=== PATIENT | male | born 1990 | race Caucasian/White ===

== ENCOUNTER 2024-04-10 22:55 | Emergency (ER) | payer BC, SELFPAY ==
[2024-04-10 23:04] VITALS: BP 165/89
[2024-04-10 23:07] VITALS: BP 065/89
[2024-04-10 23:34] VITALS: BMI 30.6
[2024-04-10 23:38] VITALS: BP 146/82
[2024-04-10] MEDS: NSS 1000 IV (23:51)
[2024-04-10 23:59] LABS: Urine Albumin Negative (Neg - Trace); Urine Bilirubin Negative (Negative); Urine Character Clear (Clear); Urine Color Yellow; Urine Glucose Negative (Negative); Urine Ketone Negative (Negative); Urine Leukocyte Negative (Negative); Urine Nitrite Negative (Negative); Urine Occult Blood Negative (Negative); Urine Urobilinogen Negative (Neg - 1+)
[2024-04-11] VITALS: BP 134/66
[2024-04-11 00:02] LABS: % Basophils 0.4 % (0-2); % Eosinophils 0.3 % (0-6); % Immature Granulocytes 0.4 % (0-0.5); % Lymphocytes 7.5 % (20.5-51.1); % Monocytes 5.2 % (1.7-9.3); % Neutrophils 86.2 % (42.2-75.2); Absolute Lymphocytes 0.8 10^3/uL (1.2-3.4); Absolute Monocytes 0.6 10^3/uL (0.1-0.6); Absolute Neutrophils 9.6 10^3/uL (1.4-6.5); Hematocrit 36.4 % (39.0-52.0); Hemoglobin 13.3 g/dL (13.0-18.0); Mean Corp Hgb Conc. 36.5 g/dL (33.0-37.0); Mean Corpuscular Hgb 31.2 pg (27.0-31.0); Mean Corpuscular Volume 85.4 fL (80.0-94.0); Mean Platelet Volume 11.1 fL (7.4-10.4); Nucleated Red Blood Cells % 0 % (-); Platelet Count 165 10^3/uL (130-400); Red Blood Cell Count 4.26 10^6/uL (4.70-6.10); Red Cell Dist. Width 12.2 % (11.5-14.5); White Blood Cell Count 11.2 10^3/uL (4.8-10.8)
[2024-04-11 00:14] LABS: ALT (SGPT) 24 U/L (0-50); AST (SGOT) 28 U/L (17-59); Albumin 4.5 g/dl (3.5-5.0); Alkaline Phosphatase 50 U/L (38-126); Blood Urea Nitrogen 24 mg/dl (9-20); Calcium 9.5 mg/dl (8.4-10.2); Carbon Dioxide 26 mmol/L (22-30); Chloride 102 mmol/L (98-107); Estimated Creatinine Clearance > 125 ml/min; Glucose 124 mg/dl (70-99); Potassium 3.8 mmol/L (3.5-5.1); Sodium 138 mmol/L (135-145); Total Bilirubin 0.5 mg/dl (0.2-1.3); Total Protein 6.8 g/dl (6.3-8.2); eGFR > 60.00
--- NOTE | 2024-04-11 02:17 | ED.GENMED ---
History of Present Illness
General
Chief Complaint: Abdominal Pain
Source: patient
Exam Limitations: none
Time Seen by Provider: 04/10/24 23:12
History of Present Illness
History of Present Illness:
34-year-old healthy male who presents for evaluation of lower pelvic/groin pain. States this started about 2 hours prior to arrival. Eunice a discomfort that he thought maybe he strained himself. He then noted some chills. Denies dysuria. No
hematuria. No diarrhea. No melena. No real abdominal pain. No nausea or vomit. The patient denies any penile discharge or concern for sexually transmitted disease. No testicular pain
Past History
Past History
ED Past Medical History: None
ED Past Surgical History: Orthopedic
Phy Exam
Physical Exam
Physical Exam:
CONSTITUTIONAL Patient alert and oriented to person, place and time. Well-appearing. Vital signs reviewed.
HEAD atraumatic, normocephalic.
EYES eyelids normal to inspection, Pupils equally round and reactive to light, Extraocular muscles intact, Conjunctiva normal, Sclera normal.
NECK normal range of motion, Trachea midline, no jugular venous distention.
RESPIRATORY CHEST No respiratory distress noted, Chest expansion equal, Bilateral breath sounds clear.
CARDIOVASCULAR regular rate and rhythm, Heart sounds normal.
ABDOMEN abdomen nontender, Bowel sounds normal. No distention. Patient does have some noted tenderness in the groin bilaterally but I do suspect small groin lymph nodes. Lower extremities otherwise normal. I do not see any local infection.
circumcised, penis normal, scrotum normal, testicles nontender.
BACK normal inspection, no obvious deformities
UPPER EXTREMITY range of motion normal, Motor strength normal, no cyanosis, no edema.
LOWER EXTREMITY range of motion normal, Motor strength normal, no cyanosis, no edema.
NEURO Speech normal, No focal motor deficits, Terry coma scale 15, Memory normal, Cranial Nerves intact to screening exam.
SKIN skin warm, dry, and normal in color.
PSYCHIATRIC patient oriented to person place and time, Normal affect.
Course
Orders/Labs/Results
Orders:
Orders
04/10/24 23:37
0.9% Sodium Chloride 1000 ml [Nss] 1,000 ml IV BOLUS
04/10/24 23:47
Complete Blood Count/With Diff Urgent
Comprehensive Metabolic Panel Urgent
Urinalysis Reflex To Culture Urgent
Date Specimen was Collected: 04/10/24
Time Specimen was Collected: 23:39
04/11/24 00:29
CT Abd/pelvis W Iv Cont Urgent
Comment:
Reason For Exam: lower abd pain
Abnormal Lab Results
04/10/24
23:47
WBC 11.2 H 10^3/uL
(4.8-10.8)
RBC 4.26 L 10^6/uL
(4.70-6.10)
Hct 36.4 L %
(39.0-52.0)
MCH 31.2 H pg
(27.0-31.0)
MPV 11.1 H fL
(7.4-10.4)
Absolute Neuts (auto) 9.6 H 10^3/uL
(1.4-6.5)
Absolute Lymphs (auto) 0.8 L 10^3/uL
(1.2-3.4)
Neutrophils % 86.2 H %
(42.2-75.2)
Lymphocytes % 7.5 L %
(20.5-51.1)
BUN 24 H mg/dl
(9-20)
Glucose 124 H mg/dl
(70-99)
04/10/24 23:47
04/10/24 23:47
Vital Signs
Initial and Last Documented VS:
Initial Vital Signs
Temp Pulse Resp BP Pulse Ox
99.8 F 96 16 165/89 100
04/10/24 23:04 04/10/24 23:04 04/10/24 23:04 04/10/24 23:04 04/10/24 23:04
Last Documented Vital Signs
Temp Pulse Resp BP Pulse Ox
99.8 F 76 16 143/78 99
04/10/24 23:07 04/11/24 02:50 04/11/24 02:50 04/11/24 02:50 04/11/24 02:50
MDM/Problems Addressed
MDM/Problems Addressed:
Groin pain, adenopathy
*Pulse Oximetry
Patient hypoxic: no
*Critical Care Note
Total Time (30-74mins, 75-104mins- exclusive of procedures): Not Applicable
Data Reviewed
Source: patient
Patient Management
Escalation/DeEscalation of care consider admission/obs:
ED workup grossly unremarkable with exception of very small leukocytosis. I did recommend close follow-up with his PCP. Unclear symptoms. He does not have gross adenopathy anywhere other than the groin area and this came on acutely. Question
viral source. No gross evidence of skin infection or localized infection of the lower extremities or pelvic area. Patient does feel much better on reassessment and will follow-up with outpatient
ED Attending Note
-
Portions of this chart may have been created with voice recognition software.� Occasional wrong word or��sound alike� substitutions may have occurred due to the inherent limitations of voice recognition software.
Discharge Plan
Departure
Patient Disposition: Home (Routine Discharge)
Date of Disposition: 04/11/24
Time of Disposition: 02:18
Patient with high blood pressure during this ER visit?: No
Discharge Problem:
Abdominal pain
Instructions: Abdominal Pain
Prescriptions:
No Action
No Current Medications
0
Referrals:
UNKNOWN - PT DOES,NOT KNOW [Family Provider] -
Activity Restrictions/Additional Instructions:
Please see your doctor in the next 2 days for follow-up and reevaluation. Use ibuprofen as needed for pain control. Return immediate for fevers, worsening pain, difficulty urinating, painful urinating, or any other concerns.
Interventions
Interventions:
*Risk Screen - Suicide Last Done: 04/10/24 22:58
*General Assessment Last Done: 04/10/24 23:25
*Neglect/Abuse Screening Last Done: 04/10/24 23:04
ED- Fall Risk Assessment Last Done: 04/10/24 23:25
*ED COVID-19 Vaccine History Last Done: 04/10/24 23:04
*Nursing Disposition Last Done: 04/11/24 02:50
TJ-Ssjjph[facility]ls[facility] Assessment Last Done: 04/10/24 23:25
Discharge Date and Time
Discharge Date/Time: 04/11/24 02:50
Print Language: FAROESE
[2024-04-11 02:50] VITALS: BP 143/78
== END 2024-04-11 02:50 | disposition home or self-care (01) ==
LOC: EMR 22:55
PROVIDERS: EMERGENCY PHYSICIAN Emergency Medicine
DX: R10.30 Lower abdominal pain, unspecified (principal)
CPT/HCPCS: 99285; 96360; 74177; 80053; 81003; 85025; Q9967

== ENCOUNTER 2024-10-28 16:42 | Emergency (ER) | payer BC, SELFPAY ==
[2024-10-28 16:53] VITALS: BP 149/89
[2024-10-28 17:17] LABS: % Basophils 0.9 % (0-2); % Eosinophils 1.2 % (0-6); % Immature Granulocytes 0.2 % (0-0.5); % Lymphocytes 24.7 % (20.5-51.1); % Monocytes 5.8 % (1.7-9.3); % Neutrophils 67.2 % (42.2-75.2); Absolute Eosinophils 0.1 10^3/uL (0-0.7); Absolute Lymphocytes 1.1 10^3/uL (1.2-3.4); Absolute Monocytes 0.3 10^3/uL (0.1-0.6); Absolute Neutrophils 2.9 10^3/uL (1.4-6.5); Hematocrit 39.3 % (39.0-52.0); Hemoglobin 14.1 g/dL (13.0-18.0); Mean Corp Hgb Conc. 35.9 g/dL (33.0-37.0); Mean Corpuscular Hgb 30.4 pg (27.0-31.0); Mean Corpuscular Volume 84.7 fL (80.0-94.0); Mean Platelet Volume 10.7 fL (7.4-10.4); Nucleated Red Blood Cells % 0 % (-); Platelet Count 195 10^3/uL (130-400); Red Blood Cell Count 4.64 10^6/uL (4.70-6.10); Red Cell Dist. Width 12.1 % (11.5-14.5); White Blood Cell Count 4.3 10^3/uL (4.8-10.8)
[2024-10-28 17:29] LABS: ALT (SGPT) 27 U/L (0-50); AST (SGOT) 27 U/L (17-59); Albumin 5.1 g/dl (3.5-5.0); Alkaline Phosphatase 54 U/L (38-126); Blood Urea Nitrogen 15 mg/dl (9-20); Calcium 9.4 mg/dl (8.4-10.2); Carbon Dioxide 24 mmol/L (22-30); Chloride 103 mmol/L (98-107); Glucose 124 mg/dl (70-99); Sodium 139 mmol/L (135-145); Total Bilirubin 0.7 mg/dl (0.2-1.3); Total Protein 7.7 g/dl (6.3-8.2); eGFR > 60.00
[2024-10-28 19:24] VITALS: BP 146/100
--- NOTE | 2024-10-28 19:52 | ED.GENMED ---
History of Present Illness
General
Chief Complaint: Abnormal Lab Value
Source: patient
Exam Limitations: none
Time Seen by Provider: 10/28/24 19:40
Nursing documentation reviewed up to this point in time: agreed with
History of Present Illness
History of Present Illness:
34-year-old male presents emergency department due to elevated creatinine and calcium on blood work done on Sunday. He states he feels fine, but did workout prior to the blood work on Sunday.
Past History
Past History
ED Past Medical History: None
ED Past Surgical History: Orthopedic
Social History
Tobacco: Non-smoker
Alcohol: None
Drug: None
Employment: Employed
Review of Systems
Review of Systems
Allergies reviewed?: Yes
All Other Systems: Not applicable
Constitutional: Reports no symptoms
EENT: Reports no symptoms
Respiratory: Reports no symptoms
Cardiac: Reports no symptoms
ABD/GI: Reports no symptoms
: Reports no symptoms
Musculoskeletal: Reports no symptoms
Skin: Reports no symptoms
Neurological: Reports no symptoms
Endocrine: Reports no symptoms
Hematologic/Lymphatic: Reports no symptoms
Psychiatric: Reports no symptoms
Phy Exam
Physical Exam
Physical Exam:
Physical Exam
General: no apparent distress, not acutely ill
Neck: supple. no meningeal signs. normal posterior pharynx
Heart: s1/s2 regular rate and rhythm, no murmur. equal radial
pulses.
HEENT: Pupils equal round reactive to light, EOMI
Lungs: no acute respiratory distress. clear bilaterally
Abdomen: normal bowel sounds. not tender. no CVAT
Neuro: alert and oriented. no focal neurological deficits cranial nerves II through XII intact
Skin: no rash
Psychiatric: well kept. interactive and cooperative
Extremities: no edema. no calf tenderness. negative homans. good distal pulses
Course
Orders/Labs/Results
Orders:
Orders
10/28/24 17:01
CMP [Comprehensive Metabolic Panel] Urgent
Complete Blood Count/With Diff Urgent
Abnormal Lab Results
10/28/24
17:01
WBC 4.3 L 10^3/uL
(4.8-10.8)
RBC 4.64 L 10^6/uL
(4.70-6.10)
MPV 10.7 H fL
(7.4-10.4)
Absolute Lymphs (auto) 1.1 L 10^3/uL
(1.2-3.4)
Glucose 124 H mg/dl
(70-99)
Albumin 5.1 H g/dl
(3.5-5.0)
10/28/24 17:01
10/28/24 17:01
Vital Signs
Initial and Last Documented VS:
Initial Vital Signs
Temp Pulse Resp BP Pulse Ox
97.9 F 68 18 149/89 100
10/28/24 16:53 10/28/24 16:53 10/28/24 16:53 10/28/24 16:53 10/28/24 16:53
Last Documented Vital Signs
Temp Pulse Resp BP Pulse Ox
97.9 F 86 17 146/100 99
10/28/24 16:53 10/28/24 19:24 10/28/24 19:24 10/28/24 19:24 10/28/24 19:24
MDM/Problems Addressed
Differential Diagnosis Includes:
Renal failure, hypercalcemia
MDM/Problems Addressed:
34-year-old male with mildly elevated blood pressure, normal creatinine and calcium. Asymptomatic. Stable for discharge.
Chronic conditions affecting care: HTN
*Pulse Oximetry
Patient hypoxic: no
*Critical Care Note
Total Time (30-74mins, 75-104mins- exclusive of procedures): Not Applicable
Patient Management
Social determinants of health affecting care: Living situation
Escalation/DeEscalation of care consider admission/obs:
Admit not indicated
ED Attending Note
-
Portions of this chart may have been created with voice recognition software.� Occasional wrong word or��sound alike� substitutions may have occurred due to the inherent limitations of voice recognition software.
Discharge Plan
Departure
Patient Disposition: Home (Routine Discharge)
Date of Disposition: 10/28/24
Time of Disposition: 19:52
Patient with high blood pressure during this ER visit?: Yes
Condition: Good
Discharge Problem:
Encounter for medical assessment
Instructions: BLOOD PRESSURE
Prescriptions:
No Action
No Current Medications
0
Activity Restrictions/Additional Instructions:
Follow-up with primary care in 7 to 14 days. Return for any concerns.
Interventions
Interventions:
*Risk Screen - Suicide Last Done: 10/28/24 16:53
*General Assessment Last Done: 10/28/24 16:53
*Neglect/Abuse Screening Last Done: 10/28/24 16:53
*ED COVID-19 Vaccine History Last Done: 10/28/24 16:53
Discharge Date and Time
Print Language: TAJIK
== END 2024-10-28 20:04 | disposition home or self-care (01) ==
LOC: EMR 16:42
PROVIDERS: Emergency Medicine; EMERGENCY PHYSICIAN Emergency Medicine; FAMILY PHYSICIAN Family Medicine
DX: Z02.79 Encounter for issue of other medical certificate (principal); R79.89 Other specified abnormal findings of blood chemistry; R03.0 Elevated blood-pressure reading, without diagnosis of hypertension
CPT/HCPCS: 99283; 80053; 85025